=== PATIENT | female | born 1980 | race African-American/Black ===

== ENCOUNTER 2017-05-23 08:00 | Inpatient (IN) | payer BC ==
[2017-05-23] MEDS ORDERED: CITRIC ACID/SODIUM CITRATE 30 ML UNIT-DOSE CUP PO ONE (08:30)
[2017-05-23] MEDS ORDERED: ELECTROLYTE-148 SOLN 500 ML IV ONE (08:30)
[2017-05-23 08:53] VITALS: BMI 33.2
[2017-05-23] MEDS ORDERED: ELECTROLYTE-148 SOLN 1,000 ML IV SCH ×2 (09:00→11:30)
[2017-05-23] MEDS ORDERED: morphine SULFATE/Preservative Free 0.5 MG/ML (1cc Syringe) SPIN ONE (11:27)
[2017-05-23] MEDS ORDERED: IBUPROFEN 600 MG TABLET (FP) PO PRN (11:27)
[2017-05-23] MEDS ORDERED: ONDANSETRON 4 MG/2 ML VIAL IVPUSH PRN (11:27)
[2017-05-23] MEDS ORDERED: ACETAMINOPHEN 325 MG TABLET (FP) PO PRN (11:27)
--- NOTE | 2017-05-23 11:29 | HP ---
Past Medical History - Primary Care Physician PCP:: Ekta Ardon - Admission Chief Complaint: Previous Secttion History of Present Illness: 36 yo G P EDC EGA with previous Section for repeat CS and salpingectomy. Pt with poor OB history and HTN AMA History Source: Patient - Past Medical History ...: 4 ...Para: 3 ...Term: 3 ...: 0 ...Spon : 0 ...Induced : 0 ...Multiple Gestation: 0 ...LMP: 08/22/16 ... Weeks Gestation by Dates: 38.4 ...EDC by Dates: 06/02/17 ...EDC by Sono: 05/29/17 - Past Surgical History Past Surgical History: Yes: Hx Myomectomy: No Hx Transabdominal Cerclage: No - Smoking History Smoking history: Never smoked Have you smoked in the past 12 months: No - Alcohol/Substance Use Hx Alcohol Use: No History of Substance Use: reports: None Home Medications - Allergies Allergies/Adverse Reactions: Allergies Allergy/AdvReac Type Severity Reaction Status Date / Time Penicillins Allergy Severe Rash Verified 05/23/17 08:58 - Home Medications Home Medications: Ambulatory Orders Nifedipine [Nifedical Xl] 60 mg PO DAILY 05/05/15 Vit No.130/Iron/FA [ Vitamins] 1 each PO DAILY 05/23/17 Ibuprofen [Motrin -] 600 mg PO QID PRN #28 tablet 05/25/17 Ferrous Sulfate [Feosol] 325 mg PO BID #60 tablet 05/26/17 Methyldopa 500 mg PO BID #60 tablet 05/26/17 Nifedipine [Procardia Xl] 60 mg PO DAILY #30 tab.er.24 05/26/17 Oxycodone HCl/Acetaminophen [Percocet 5-325 mg Tablet -] 1 tab PO Q4H #20 tablet MDD 6 05/26/17 Review of Systems - Review of Systems Constitutional: reports: No Symptoms Eyes: reports: No Symptoms HENT: reports: No Symptoms Neck: reports: No Symptoms Cardiovascular: reports: No Symptoms Respiratory: reports: No Symptoms Gastrointestinal: reports: No Symptoms Genitourinary: reports: No Symptoms Breasts: reports: No Symptoms Reported Musculoskeletal: reports: No Symptoms Integumentary: reports: No Symptoms Neurological: reports: No Symptoms Endocrine: reports: No Symptoms Hematology/Lymphatic: reports: No Symptoms Psychiatric: reports: No Symptoms Physical Exam - Maternity Vital Signs: Vital Signs Temperature 97.6 F 05/23/17 08:30 Pulse Rate 89 05/23/17 08:30 Respiratory Rate 18 05/23/17 08:30 Blood Pressure 118/74 05/23/17 08:30 O2 Sat by Pulse Oximetry (%) Constitutional: Yes: Well Nourished, No Distress Cardiovascular: Yes: WNL, Regular Rate and Rhythm Lungs: Clear to auscultation Breast(s): Yes: WNL - Abdominal Exam/OB Fundal Height: 39 Number of Fetuses: Single Presentation: Vertex Contractions: No Category: I Accelerations: Non-Uniform Decelerations: None - Vaginal Exam/OB Dilatation (cm): closed Amniotic Membrane Status: Intact Presentation: Vertex/Position - Physical Exam Musculoskeletal: Yes: WNL Extremities: Yes: WNL Edema: No Integumentary: Yes: WNL Psychiatric: Yes: WNL, Alert, Oriented Hemorrhage Risk Assessment - Risk Factors Medium Risk Factors: Yes: Prior , uterine surgery,or multiple laparotomies Risk Score: 1 Risk Level: Medium Risk Problem List - Problems (1) Previous delivery, antepartum Code(s): O34.219 - MATERNAL CARE FOR UNSP TYPE SCAR FROM PREVIOUS DEL Assessment/Plan previous CS Chronic HTN Poor OB history AMA IUP at 39 week Plan Repeat CS
--- NOTE | 2017-05-23 11:34 | OP ---
Operative Note - Note: Operative Date: 05/23/17 Pre-Operative Diagnosis: Previous CS. Chronic HTN. AMA. voluntary sterilization Operation: Repeat Section. laft salpingectomy Findings: normal left fallopian tube Post-Operative Diagnosis: Same as Pre-op Surgeon: Ekta Ardon Transit Vehicle Inspector: Kt Nguyen Anesthesia: Spinal Specimens Removed: plavcenta intact Estimated Blood Loss (mls): 500 Operative Report Dictated: Yes
[2017-05-23 11:37] LABS: ARTERIAL BLD GAS O2 SATURATION 33.5 % (90-98.9); ARTERIAL BLOOD GAS BASE EXCESS -0.3 meq/l (-2-2); ARTERIAL BLOOD GAS HCO3 26.7 meq/L (22-26); ARTERIAL BLOOD GAS PO2 19.6 mmHg (80-100); ARTERIAL BLOOD GAS pH 7.31 (7.35-7.45)
[2017-05-23 11:46] LABS: ARTERIAL BLD GAS O2 SATURATION 70.1 % (90-98.9); ARTERIAL BLOOD GAS BASE EXCESS -0.1 meq/l (-2-2); ARTERIAL BLOOD GAS HCO3 24.4 meq/L (22-26); ARTERIAL BLOOD GAS PO2 32.2 mmHg (80-100); ARTERIAL BLOOD GAS pH 7.39 (7.35-7.45)
[2017-05-23] MEDS ORDERED: TUBERCULIN PPD 5 TU/0.1ML SYRINGE (IN PATIENT USE ONLY) ID ONE (12:00)
--- NOTE | 2017-05-23 12:03 | OP ---
DATE OF OPERATION: 05/23/2017 PREOPERATIVE DIAGNOSIS: Previous section, chronic hypertension, against medical advice, intrauterine at 39 weeks, voluntary sterilization. OPERATION: Repeat section and left salpingectomy. SURGEON: Ekta Ardon MD MEDICAL BILLING SERVICE: DESIRE Davis. unavailable. ANESTHESIA: Spinal. DESCRIPTION OF PROCEDURE: The patient was taken to the operating room and placed in supine position, prepped and draped in usual sterile fashion. Time-out was performed in accordance with hospital regulation. Scalpel was then used to make a Pfannenstiel skin incision. Cautery was then used to go through layers of the abdominal wall to the level of the fascia. The fascia was cut in the midline. Cautery was then used to open the fascia in a smiling fashion. Kochers were then used to bluntly and sharply dissect the rectus muscles off the fascia. Muscles were split in the midline. Peritoneal cavity was then entered and carried up and down where a bladder retractor was then placed. Vesicouterine reflection was then entered. The bladder was bluntly dissected out of the operative field. Scalpel was then used to make a low transverse uterine incision. Incision was carried upward using bandage scissors. A live female infant was delivered in OT position. Nose and mouth suction performed. Shoulders were delivered without difficulty. Cord was clamped and cut. Cord blood obtained. Delayed cord clamping was done. Cord pH was submitted. Placenta was manually extracted from the uterus. The infant was handed to the operating room nurse. Placenta was extracted from the uterus. Uterus was exteriorized and cleaned with clean laparotomy pads. Uterine incision was then closed using 0 Biosyn suture first layer continuous and locking, second layer imbricating the first layer. Hemostasis was achieved. Left tube was noted. No right tube due to an ectopic . LigaSure was then used to cauterize and cut the left tube performing a salpingectomy. Uterus exteriorized. Abdominal cavity cleaned with clean laparotomy pads. Peritoneum was closed using 0 Biosyn suture after abdominal sweep done. Muscle was approximated in the midline. Fascia was then closed using 0 Vicryl suture in 2 parts. The skin was then closed using 3-0 Vicryl in subcuticular fashion. The wound was washed and dressed. The patient tolerated the procedure well. Estimated blood loss was 500 mL. EKTA ARDON M.D. [id number] MTDD
[2017-05-23] MEDS: OXYTOCIN 20 UNITS in 0.9% NS 1,000 UNIT/50,000 ML INFUS.BAG IV SCH ×2 (12:50→20:30)
[2017-05-23] MEDS ORDERED: ACETAMINOPHEN 1000 MG/100 ML VIAL (NON FORMULARY) IVPB PRN (18:44)
[2017-05-23] MEDS: METHYLERGONOVINE MALEATE 0.2 MG/1 ML AMP IM PRN ×2 (20:32→20:34)
[2017-05-23] MEDS: METHYLDOPA 500 MG TABLET PO SCH (21:32)
[2017-05-24 08:26] LABS: BASOPHIL 0.1 % (0-2.0); EOSINOPHIL 0.1 % (0-4.5); MCH 20.5 pg (25.7-33.7); MEAN PLT VOLUME 7.6 fl (7.5-11.1); PLATELET COUNT 257 K/MM3 (134-434); RDW 15.5 % (11.6-15.6); WHITE BLOOD COUNT 11.2 K/mm3 (4.0-10.0)
[2017-05-24] MEDS: oxyCODONE HCL 5 MG TABLET PO PRN ×3 (08:42→21:00)
[2017-05-24] MEDS: SIMETHICONE 80 MG TAB.CHEW (FP) PO PRN ×3 (08:44→21:00)
[2017-05-24] MEDS: ACETAMINOPHEN 325 MG TABLET (FP) PO PRN ×3 (08:44→20:59)
[2017-05-24] MEDS: NIFEdipine E.R 60 MG TABLET (UD) PO SCH (10:22)
[2017-05-24] MEDS: METHYLDOPA 500 MG TABLET PO SCH ×2 (10:22→21:03)
[2017-05-24] MEDS: ENOXAPARIN NA (PORCINE) 40 MG/0.4 ML DISP.SYRIN SQ SCH (10:22)
[2017-05-24] MEDS: PRENATAL VITAMINS W/ FOLIC ACID TABLET (FP) PO SCH (10:30)
[2017-05-24] MEDS ORDERED: oxyCODONE HCL 5 MG TABLET PO PRN ×2 (11:37→12:47)
[2017-05-24] MEDS ORDERED: BISACODYL 10 MG SUPP.RECT RC PRN (11:37)
[2017-05-24] MEDS ORDERED: OXYTOCIN 20 UNITS in 0.9% NS 20 UNIT/1,000 ML INFUS.BAG IV SCH (12:55)
--- NOTE | 2017-05-24 14:53 | PN ---
Post Progress Note - Subjective Subjective: Pt seen/evaluated and doing well. Having some incisional pain upon ambulating, but otherwise feels well. Pain controlled when takes medications. Ambulating, voiding, no flatus yet. Tolerating clears. VB minimal. Denies CP/SOB/F/C/HASTINGS. Type of Delivery: Repeat C/S Vital Signs: Vital Signs Temperature 99.2 F 05/24/17 14:00 Pulse Rate 931 H 05/24/17 14:00 Respiratory Rate 18 05/24/17 14:00 Blood Pressure 111/61 05/24/17 14:00 O2 Sat by Pulse Oximetry (%) 100 05/23/17 21:00 Uterus: Yes: Fundus Firm, Fundus below umbilicus Incision: Yes: Dressing dry and intact Abdomen/GI: Yes: Abdomen soft, Tolerating PO. No: Tender, Passing flatus Lochia: Yes: Rubra Lochia, amount: Small Extremities: No: Edema Perineum: Yes: Intact Activity: Ambulating - Labs Labs: CBC WBC 11.2 K/mm3 (4.0-10.0) H D 05/24/17 07:00 RBC 4.02 M/mm3 (3.60-5.2) 05/24/17 07:00 Hgb 8.2 GM/dL (10.7-15.3) L D 05/24/17 07:00 Hct 25.7 % (32.4-45.2) L D 05/24/17 07:00 MCV 64.0 fl (80-96) L 05/24/17 07:00 MCH 20.5 pg (25.7-33.7) L 05/24/17 07:00 MCHC 32.0 g/dl (32.0-36.0) 05/24/17 07:00 RDW 15.5 % (11.6-15.6) 05/24/17 07:00 Plt Count 257 K/MM3 (134-434) 05/24/17 07:00 MPV 7.6 fl (7.5-11.1) 05/24/17 07:00 Neutrophils % 86.0 % (42.8-82.8) H 05/24/17 07:00 Lymphocytes % 9.3 % (8-40) D 05/24/17 07:00 Monocytes % 4.5 % (3.8-10.2) 05/24/17 07:00 Eosinophils % 0.1 % (0-4.5) 05/24/17 07:00 Basophils % 0.1 % (0-2.0) 05/24/17 07:00 Problem List - Problems (1) delivery delivered Code(s): O82 - ENCOUNTER FOR DELIVERY WITHOUT INDICATION Assessment/Plan 36 y/o POD#1 s/p delivery - AFVSS - Hgb 8.2 post op , will monitor - advance diet as tolerated - encourage ambulation, lovenox for VTE PPx - routine post op care
--- NOTE | 2017-05-24 15:20 | PN ---
Progress Note (short form) - Note Progress Note: Anesthesia POD#1 S/P Repeat under spinal and DM VSS,no N/V,pain is under control,extremities recovered. Yesenia Amaral MD.
[2017-05-25] MEDS: oxyCODONE HCL 5 MG TABLET PO PRN ×3 (06:36→21:05)
[2017-05-25] MEDS: ACETAMINOPHEN 325 MG TABLET (FP) PO PRN ×3 (06:36→21:04)
[2017-05-25] MEDS: SIMETHICONE 80 MG TAB.CHEW (FP) PO PRN ×3 (06:36→21:04)
--- NOTE | 2017-05-25 08:24 | PN ---
Post Progress Note - Subjective Subjective: Pt doing well this a.m., no complaints. Pain controlled, tolerating regular diet. Ambulating, voiding, passing flatus. Denies CP/SOB/F/C/HASTINGS. Type of Delivery: Repeat C/S Vital Signs: Vital Signs Temperature 97.9 F 05/24/17 22:00 Pulse Rate 90 05/25/17 01:21 Respiratory Rate 18 05/25/17 01:21 Blood Pressure 118/62 05/25/17 01:21 O2 Sat by Pulse Oximetry (%) 100 05/23/17 21:00 Breast Exam: Yes: Soft Uterus: Yes: Fundus Firm, Fundus @ umbilicus Incision: Yes: Sutures intact Abdomen/GI: Yes: Abdomen soft, Passing flatus, Tolerating PO. No: Abdominal Distention, Tender Lochia: Yes: Rubra Lochia, amount: Small Extremities: No: Edema Perineum: Yes: Intact Activity: Ambulating - Labs Labs: CBC WBC 11.2 K/mm3 (4.0-10.0) H D 05/24/17 07:00 RBC 4.02 M/mm3 (3.60-5.2) 05/24/17 07:00 Hgb 8.2 GM/dL (10.7-15.3) L D 05/24/17 07:00 Hct 25.7 % (32.4-45.2) L D 05/24/17 07:00 MCV 64.0 fl (80-96) L 05/24/17 07:00 MCH 20.5 pg (25.7-33.7) L 05/24/17 07:00 MCHC 32.0 g/dl (32.0-36.0) 05/24/17 07:00 RDW 15.5 % (11.6-15.6) 05/24/17 07:00 Plt Count 257 K/MM3 (134-434) 05/24/17 07:00 MPV 7.6 fl (7.5-11.1) 05/24/17 07:00 Neutrophils % 86.0 % (42.8-82.8) H 05/24/17 07:00 Lymphocytes % 9.3 % (8-40) D 05/24/17 07:00 Monocytes % 4.5 % (3.8-10.2) 05/24/17 07:00 Eosinophils % 0.1 % (0-4.5) 05/24/17 07:00 Basophils % 0.1 % (0-2.0) 05/24/17 07:00 Problem List - Problems (1) delivery delivered Code(s): O82 - ENCOUNTER FOR DELIVERY WITHOUT INDICATION Assessment/Plan 36 y/o POD#2 s/p delivery - AFVSS - Hgb 8.2 post op , will recheck in a.m. - for PO Iron and prentals - regular diet - PO pain meds - encourage ambulation, lovenox for VTE PPx - routine post op care
--- NOTE | 2017-05-25 08:24 | DS ---
Physical Exam-SUPER[employer] TWISTING DEPARTMENT Vital Signs: Vital Signs Temperature 97.9 F 05/24/17 22:00 Pulse Rate 90 05/25/17 01:21 Respiratory Rate 18 05/25/17 01:21 Blood Pressure 118/62 05/25/17 01:21 O2 Sat by Pulse Oximetry (%) 100 05/23/17 21:00 Labs: CBC, BMP 05/24/17 07:00 Delivery - Delivery Type of Anesthesia: Spinal Episiotomy/Laceration: None EBL (cc): 500 Delivery, Single - Stages of Labor Date of Delivery: 05/23/17 Time of Delivery: 10:56 Time Placenta Delivered: 10:57 - Condition of Gravel Screener/Flap Presser Present: Yes Name: Faby Hoffman Infant Gender: Female Weight: 7 lb 11 oz Position: OT Total Hours ROM (Hrs/Mins): 2mins - 1 Minute Total Score: 9 5 Minutes Total Score: 9 - [place] Feeding Plan Initial Plan: Exclusive throughout hospitalization Discharge Summary Reason For Visit: C/SECTION Current Active Problems delivery delivered (Acute) Previous delivery, antepartum (Acute) Procedures: Principal: Repeat Low Transverse Delivery Hospital Course: Pt admitted on 05/23/2017 for scheduled repeat delivery. She underwent an uncomplicated procedure. Pt was known to have chronic HTn and was kept on all her home meds throughout her admission and her blood pressure remained normal. The patient had post operative anemia but her Hgb/Hct was stable upon monitoring. She was kept on Oral Iron. She met all post op milestones and was discharged home on post op day 3 in stable condition. Condition: Good - Instructions Diet, Activity, Other Instructions: Physical activity Resume your normal everyday activity as tolerated no heavy lifting or exercise until seen by your surgeon. You may walk unlimited amounts and climb stairs. You may resume driving the car when you feel safe and comfortable behind the wheel. No sexual activity as instructed. Wound care If you have a bandage, leave it on, and keep dry for 48-72 hours. After that time discard the outer bandage. If they are tapes on the skin under the out of bandage leave them in place. They will peel off in the next 7 to 10 days. Do Not Peel them off. You may shower the day after surgery. If there are tapes present on the skin, you may shower over them. Diet There are no dietary restrictions. Eat healthy, high-fiber foods. Drink 6 to 8 glasses of liquid each day. This will assist in keeping your bowels regular. Pain management You may take Tylenol or acetaminophen or Ibuprofen (for example, Motrin, Advil etc.) for mild pain. If any pain prescription is sent to your pharmacy please take for moderate to severe pain as directed. Call MD for any of the following: Severe pain not relieved by medication Fever of 101 or higher Excessive bleeding or drainage on dressing Inability to urinate call the office to make an appointment for 1 week after discharge Referrals: Ekta Ardon MD [Staff Physician] - Disposition: HOME - Home Medications Comprehensive Discharge Medication List: Ambulatory Orders Methyldopa 500 mg PO BID 05/05/15 Nifedipine [Nifedical Xl] 60 mg PO DAILY 05/05/15 Vit No.130/Iron/FA [ Vitamins] 1 each PO DAILY 05/23/17
[2017-05-25] MEDS: NIFEdipine E.R 60 MG TABLET (UD) PO SCH (09:52)
[2017-05-25] MEDS: METHYLDOPA 500 MG TABLET PO SCH ×2 (09:52→22:13)
[2017-05-25] MEDS: ENOXAPARIN NA (PORCINE) 40 MG/0.4 ML DISP.SYRIN SQ SCH (09:53)
[2017-05-25] MEDS: PRENATAL VITAMINS W/ FOLIC ACID TABLET (FP) PO SCH (09:55)
[2017-05-26] MEDS: SIMETHICONE 80 MG TAB.CHEW (FP) PO PRN ×3 (01:00→10:11)
[2017-05-26] MEDS: ACETAMINOPHEN 325 MG TABLET (FP) PO PRN ×3 (01:00→10:12)
[2017-05-26] MEDS: oxyCODONE HCL 5 MG TABLET PO PRN ×3 (01:01→10:11)
[2017-05-26 07:42] LABS: BASOPHIL 0.3 % (0-2.0); EOSINOPHIL 0.6 % (0-4.5); MCH 20.5 pg (25.7-33.7); MCHC 31.7 g/dl (32.0-36.0); MEAN CELL VOLUME 64.8 fl (80-96); MEAN PLT VOLUME 6.9 fl (7.5-11.1); NEUTROPHILS 77.7 % (42.8-82.8); PLATELET COUNT 255 K/MM3 (134-434); RDW 15.3 % (11.6-15.6); WHITE BLOOD COUNT 7.5 K/mm3 (4.0-10.0)
[2017-05-26 08:23] VITALS: BP 120/70; PULSE 83; TEMP 98.1
[2017-05-26] MEDS: PRENATAL VITAMINS W/ FOLIC ACID TABLET (FP) PO SCH (10:10)
[2017-05-26] MEDS: ENOXAPARIN NA (PORCINE) 40 MG/0.4 ML DISP.SYRIN SQ SCH (10:11)
[2017-05-26] MEDS: METHYLDOPA 500 MG TABLET PO SCH (10:11)
[2017-05-26] MEDS: NIFEdipine E.R 60 MG TABLET (UD) PO SCH (10:11)
== END 2017-05-26 12:20 | disposition home or self-care (01) | DRG 766 ==
LOC: JLDR 08:10 → J3W 13:00
PROVIDERS: ADMIT Obstetrics & Gynecology; ATTEND Obstetrics & Gynecology
PROC: 10D00Z1 Extraction of Products of Conception, Low, Open Approach (ICD-10-PCS; principal; 2017-05-23)
PROC: 0UT60ZZ Resection of Left Fallopian Tube, Open Approach (ICD-10-PCS; 2017-05-23)
DX: O34.211 Maternal care for low transverse scar from previous cesarean delivery (principal); O16.4 Unspecified maternal hypertension, complicating childbirth; O90.81 Anemia of the puerperium; Z37.0 Single live birth; O99.214 Obesity complicating childbirth; E66.8 Other obesity; O75.89 Other specified complications of labor and delivery; D56.9 Thalassemia, unspecified; Z68.33 Body mass index [BMI] 33.0-33.9, adult; Z30.2 Encounter for sterilization; Z3A.39 39 weeks gestation of pregnancy
CPT/HCPCS: 36415; 36600; 82803; 85025